=== PATIENT | male | born 1970 | race Caucasian/White ===

== ENCOUNTER 2016-08-03 09:50 | Emergency (ER) | payer SELFPAY | END 2016-08-03 10:45 | disposition left against medical advice (07) | LOC: D.ER 09:50 | DX: R05 Cough (principal) ==

== ENCOUNTER 2016-10-15 20:19 | Emergency (ER) | payer SELFPAY ==
[2016-10-16 00:21] LABS: APPEARANCE CLEAR (CLEAR); BILIRUBIN NEGATIVE (NEGATIVE); COLOR YELLOW (YELLOW); GLUCOSE NEGATIVE (NEGATIVE); KETONE NEGATIVE (NEGATIVE); LEUKOCYTE ESTERASE 1+ (NEGATIVE); NITRITE NEGATIVE (NEGATIVE); PROTEIN TRACE mg/dL (NEGATIVE); UROBILINOGEN NORMAL (NORMAL)
[2016-10-16 00:23] LABS: BACTERIA FEW /hpf (NONE SEEN); EPITHELIAL CELLS 0-5 /hpf (0-5); MUCUS <1+ /lpf (NONE SEEN); RED CELLS - URINE NONE SEEN /hpf (0-5)
== END 2016-10-16 00:54 | disposition home or self-care (01) ==
LOC: D.ER 20:19
PROVIDERS: Nurse Practitioner Acute Care
DX: M25.512 Pain in left shoulder (principal); M25.562 Pain in left knee; V09.9XXA Pedestrian injured in unspecified transport accident, initial encounter; Y93.55 Activity, bike riding; Y92.410 Unspecified street and highway as the place of occurrence of the external cause

== ENCOUNTER 2016-11-04 17:41 | Emergency (ER) | payer SELFPAY ==
[2016-11-04 18:26] LABS: BASOPHILS 0.1 % (0-2); EOSINOPHILS 1.2 % (0-7); HEMATOCRIT 45.8 % (42.0-54.0); HEMOGLOBIN 15.8 g/dL (13.5-17.5); IMMATURE GRANULOCYTES 0.4 % (0-5); LYMPHOCYTES 29.6 % (15-50); MCH 30.9 pg (26.0-34.0); MCHC 34.5 g/dL (31.0-37.0); MCV 89.5 fL (80.0-100.0); MEAN PLATELET VOLUME 10.5 fL (7.4-10.4); MONOCYTES 8.2 % (2-11); NEUTROPHILS 60.5 % (40-80); PLATELET COUNT 187 10x3/uL (130-400); RBC 5.12 10x6/uL (4.20-6.10); WBC 8.4 10x3/uL (4.8-10.8)
[2016-11-04 18:51] LABS: ALBUMIN 3.2 g/dL (3.4-5.0); ANION GAP 12.7 mmol/L (8-16); BILIRUBIN - TOTAL 0.55 mg/dL (0.2-1.3); CALCIUM 8.7 mg/dL (8.5-10.1); CARBON DIOXIDE 25.9 mmol/L (21.0-32.0); CREATININE - SERUM 1.4 mg/dL (0.6-1.3); POTASSIUM - SERUM 3.6 mmol/L (3.5-5.1); PROTEIN - SERUM 6.6 g/dL (6.4-8.2)
== END 2016-11-04 20:35 | disposition home or self-care (01) ==
LOC: D.ER 17:41
PROVIDERS: Emergency Medicine
DX: R10.9 Unspecified abdominal pain (principal); F17.200 Nicotine dependence, unspecified, uncomplicated

== ENCOUNTER 2016-11-21 17:57 | Emergency (ER) | payer SELFPAY ==
[2016-11-21 18:37] LABS: BASOPHILS 0.2 % (0-2); EOSINOPHILS 1.7 % (0-7); HEMATOCRIT 48.5 % (42.0-54.0); IMMATURE GRANULOCYTES 0.7 % (0-5); LYMPHOCYTES 28.7 % (15-50); MCH 31.2 pg (26.0-34.0); MCHC 35.1 g/dL (31.0-37.0); MEAN PLATELET VOLUME 10.5 fL (7.4-10.4); MONOCYTES 9.1 % (2-11); NEUTROPHILS 59.6 % (40-80); PLATELET COUNT 237 10x3/uL (130-400); RBC 5.45 10x6/uL (4.20-6.10); RDW 12.5 % (11.5-14.5); WBC 10.7 10x3/uL (4.8-10.8)
[2016-11-21 18:51] LABS: APPEARANCE CLEAR (CLEAR); BILIRUBIN NEGATIVE (NEGATIVE); COLOR YELLOW (YELLOW); GLUCOSE NEGATIVE (NEGATIVE); KETONE NEGATIVE (NEGATIVE); NITRITE NEGATIVE (NEGATIVE); PROTEIN NEGATIVE (NEGATIVE); UROBILINOGEN NORMAL (NORMAL)
[2016-11-21 18:54] LABS: BACTERIA FEW /hpf (NONE SEEN)
[2016-11-21 19:10] LABS: ANION GAP 13.1 mmol/L (8-16); BILIRUBIN - TOTAL 0.67 mg/dL (0.2-1.3); CALCIUM 8.4 mg/dL (8.5-10.1); CREATININE - SERUM 1.4 mg/dL (0.6-1.3); POTASSIUM - SERUM 4.1 mmol/L (3.5-5.1); PROTEIN - SERUM 6.2 g/dL (6.4-8.2)
== END 2016-11-21 21:54 | disposition home or self-care (01) ==
LOC: D.ER 17:57
PROVIDERS: Emergency Medicine
DX: N20.1 Calculus of ureter (principal); J93.9 Pneumothorax, unspecified

== ENCOUNTER 2017-07-25 12:52 | Emergency (ER) | payer SELFPAY ==
[~2017-07-25] VITALS: Ht 177.8 cm; Wt 104.5 kg
[2017-07-25 13:05] VITALS: Ht 177.8 cm; Wt 104.5 kg
[2017-07-25 15:34] LABS: APPEARANCE HAZY (CLEAR); BILIRUBIN NEGATIVE (NEGATIVE); COLOR YELLOW (YELLOW); GLUCOSE NEGATIVE (NEGATIVE); KETONE NEGATIVE (NEGATIVE); NITRITE NEGATIVE (NEGATIVE); PROTEIN NEGATIVE (NEGATIVE)
[2017-07-25 16:45] LABS: BASOPHILS 0.2 % (0-2); EOSINOPHILS 0.7 % (0-7); HEMATOCRIT 47.7 % (42.0-54.0); HEMOGLOBIN 16.3 g/dL (13.5-17.5); IMMATURE GRANULOCYTES 0.4 % (0-5); LYMPHOCYTES 33.9 % (15-50); MCH 31.1 pg (26.0-34.0); MCHC 34.2 g/dL (31.0-37.0); MEAN PLATELET VOLUME 11.3 fL (7.4-10.4); MONOCYTES 8.6 % (2-11); NEUTROPHILS 56.2 % (40-80); PLATELET COUNT 197 10x3/uL (130-400); RBC 5.24 10x6/uL (4.20-6.10); RDW 12.8 % (11.5-14.5); WBC 8.9 10x3/uL (4.8-10.8)
[2017-07-25 16:59] LABS: ALBUMIN 3.9 g/dL (3.4-5.0); ANION GAP 13.3 mmol/L (8-16); BILIRUBIN - TOTAL 0.89 mg/dL (0.2-1.3); CALCIUM 9.5 mg/dL (8.5-10.1); CARBON DIOXIDE 26.6 mmol/L (21.0-32.0); CREATININE - SERUM 1.2 mg/dL (0.6-1.3); POTASSIUM - SERUM 3.9 mmol/L (3.5-5.1); PROTEIN - SERUM 7.9 g/dL (6.4-8.2)
[2017-07-25] MEDS ORDERED: ZITHROMAX250 MG PO (17:22)
[2017-07-25] MEDS ORDERED: PROAIR HFA8.5 GM INH (17:22)
[2017-07-25] MEDS ORDERED: SYMBICORT 16010.2 GM INH (17:22)
[2017-07-25] MEDS ORDERED: LAMISIL250 MG PO (17:24)
[2017-07-25 17:37] VITALS: BP 122/084
[2017-07-25 17:41] LABS: UDS - AMPHET NEGATIVE QUAL (NEGATIVE); UDS - BARB NEGATIVE QUAL (NEGATIVE); UDS - BENZO NEGATIVE QUAL (NEGATIVE); UDS - COCAINE POSITIVE QUAL (NEGATIVE); UDS - OPIATE NEGATIVE QUAL (NEGATIVE); UDS - PCP NEGATIVE QUAL (NEGATIVE); UDS - THC POSITIVE QUAL (NEGATIVE)
== END 2017-07-25 17:43 | disposition home or self-care (01) ==
LOC: D.ER 12:52
PROVIDERS: Family Medicine
DX: B35.3 Tinea pedis (principal); J18.9 Pneumonia, unspecified organism; R09.89 Other specified symptoms and signs involving the circulatory and respiratory systems; R06.2 Wheezing; R21 Rash and other nonspecific skin eruption

== ENCOUNTER 2018-01-23 15:46 | Emergency (ER) | payer SELFPAY | END 2018-01-23 16:35 | disposition home or self-care (01) | LOC: D.ER 15:46 | DX: L02.11 Cutaneous abscess of neck (principal); D36.7 Benign neoplasm of other specified sites ==

== ENCOUNTER 2018-11-01 10:29 | Emergency (ER) | payer SELFPAY ==
[~2018-11-01] VITALS: Ht 177.8 cm; Wt 90.9 kg
[~2018-11-01 10:29] MED LIST: CLEOCIN HCL300 MG PO; KEFLEX500 MG PO; LAMISIL250 MG PO; PROAIR HFA8.5 GM INH; SYMBICORT 16010.2 GM INH; ZITHROMAX250 MG PO
[2018-11-01 10:42] VITALS: Ht 177.8 cm; Wt 90.9 kg
[2018-11-01 11:29] LABS: BASOPHILS 0.1 % (0-2); EOSINOPHILS 0.4 % (0-7); HEMATOCRIT 43.5 % (42.0-54.0); HEMOGLOBIN 15.1 g/dL (13.5-17.5); IMMATURE GRANULOCYTES 0.3 % (0-5); LYMPHOCYTES 17.4 % (15-50); MCH 30.8 pg (26.0-34.0); MCHC 34.7 g/dL (31.0-37.0); MCV 88.8 fL (80.0-100.0); MEAN PLATELET VOLUME 10.4 fL (7.4-10.4); MONOCYTES 13.1 % (2-11); NEUTROPHILS 68.7 % (40-80); RDW 12.1 % (11.5-14.5); WBC 13.3 10x3/uL (4.8-10.8)
[2018-11-01 11:30] LABS: PLATELET COUNT 150 10x3/uL (130-400)
[2018-11-01 11:34] LABS: ALBUMIN 3.7 g/dL (3.4-5.0); ANION GAP 14.3 mmol/L (8-16); BILIRUBIN - TOTAL 1.48 mg/dL (0.2-1.3); CALCIUM 8.8 mg/dL (8.5-10.1); CARBON DIOXIDE 25.9 mmol/L (21.0-32.0); CREATININE - SERUM 1.2 mg/dL (0.6-1.3); POTASSIUM - SERUM 4.2 mmol/L (3.5-5.1); PROTEIN - SERUM 7.5 g/dL (6.4-8.2)
[2018-11-01] MEDS ORDERED: TORADOL10 MG PO (13:45)
[2018-11-01] MEDS ORDERED: CLEOCIN HCL300 MG PO (13:45)
[2018-11-01] MEDS ORDERED: KEFLEX500 MG PO (13:45)
[2018-11-01 14:12] VITALS: BP 140/72
== END 2018-11-01 14:19 | disposition home or self-care (01) ==
LOC: D.ER 10:29
PROVIDERS: Family Medicine
DX: L03.113 Cellulitis of right upper limb (principal); F17.200 Nicotine dependence, unspecified, uncomplicated